=== PATIENT | male | born 1990 | race Caucasian/White ===

== ENCOUNTER 2016-06-22 12:36 | Emergency (ER) | payer OTHER ==
[~2016-06-22] VITALS: Ht 182.9 cm; Wt 105.5 kg
[2016-06-22 13:12] VITALS: BP 135/90; PULSE 95; RESP 18; O2SAT 98
[2016-06-22 13:59] LABS: BASOPHILS % (AUTO) 0.5 % (0-3); EOSINOPHILS % (AUTO) 3.3 % (0-5); MONOCYTES % (AUTO) 9.5 % (4-12); Mean Corpuscular Hemoglobin 29.3 pg (27.0-35.0); Mean Corpuscular Volume 82.4 fL (81-100); NEUTROPHILS % (AUTO) 66.5 % (40-74); Platelet Count 267 bil/L (150-400)
[2016-06-22 14:09] VITALS: BP 125/84; PULSE 86; RESP 16; O2SAT 97
--- NOTE | 2016-06-22 14:29 | DRSVH ---
PROCEDURE: X-RAY CHEST ONE VIEW, PORTABLE ([id number]) INDICATIONS: cp TECHNIQUE: One view of the chest was acquired. COMPARISON: None. FINDINGS: Surgical changes and devices: None. Lungs and pleura: No pleural effusions or pneumothorax. Lungs are clear. Mediastinum: Mediastinal contours appear normal. Heart size is normal. Bones and chest wall: No suspicious bony lesions. Overlying soft tissues appear unremarkable. IMPRESSION: Normal for age. Dictated by: Scott Wu M.D. on 06/22/2016 at 14:27 Approved by: Scott Wu M.D. on 06/22/2016 at 14:27
[2016-06-22 14:35] LABS: TROPONIN T < 0.010 ug/L (0.0-0.011)
[2016-06-22 14:36] LABS: Magnesium 2.1 mg/dL (1.6-2.6)
--- NOTE | 2016-06-22 15:12 | ED.REPORT ---
HPI-Chest Pain Under 40 Date of Service Jun 22, 2016 ED Provider: Parker Kent MD A 26 year old male with a history of insulin dependant diabetes presents to the ED complaining of sudden onset, right-sided chest pain that began at 1100 this morning. He reports experiencing similar intermittent chest pain for the past few months. He describes the pain as sharp, like "pins and needles". Associated symptoms include SOB, anxiety, facial numbness and numbness in his fingers. His pain is exacerbated by deep breath but have improved since onset. Patient currently takes rosuvastatin. He is unsure of history of blood clots and denies any recent long flights. He denies fever or cough. Nursing Notes Stated Complaint: CHEST PAIN,HARD TO BREATHE,NUMBNESS LEFT ARM Chief Complaint: Chest Pain-Non Cardiac Nature Nursing Notes Reviewed: Yes Allergies: Coded Allergies: bacitracin (Verified Allergy, Severe, 06/22/16) neomycin (Verified Allergy, Severe, 06/22/16) polymyxin B (Verified Allergy, Severe, 06/22/16) General Time Seen by MD: 15:09 Chief Complaint Chest pain Hx Obtained From: Patient Arrived By: Walk-in Sudden in Onset?: Yes Sudden in Onset?: No Onset Occurred: 5 - 8 hours ago Symptom Duration: Since onset Location: : Chest left: Chest right Quality: Painful Radiation: : Does not radiate Migration/Movement: Reports: None Severity: Current: Mild Severity: Maximum: Moderate Associated with: Reports: Numbness/tingling (in extremities), Shortness of breath Pertinent Negative: Pt denies other symptoms Exacerbated by: Deep breath Recent Healthcare: No recent doctor visit, No recent hospitalization Risk Factors )( CAD Risk Stratification Diabetes mellitus Risk factors reviewed TAD Risk Stratification Risk factors reviewed )( PE Risk Stratification Immobilization PERC Rule PERC Result: All PERC criteria "No" Past Medical History Past Medical History Type I diabetes Anxiety - Panic attacks Reports: Hyperlipidemia Past Surgical History None reported. Family History Noncontributory Smoking History Former Smoker Social History Other Social History: Good social support, Local resident Ambulatory Status Independent Review of Systems Constitutional: Denies: Chills, Fever Respiratory: Reports: Shortness of breath, Denies: Non-productive cough Cardiovascular: Reports: Chest pain GI: Denies: Abdominal pain, Nausea, Vomiting Neurologic: Reports: Numbness (mild numbness in extremitites), Denies: Change LOC Psychiatric: Reports: Anxiety Complete sys rev & neg: except as marked. Physical Exam Initial Vital Signs Vital Signs (First) Date Time Temp Pulse Resp B/P Pulse Ox O2 Delivery O2 Flow Rate FiO2 06/22/16 13:12 36.6 95 18 135/90 98 06/22/16 16:01 Room Air Initial VS: Reviewed Head / Eyes: Atraumatic, Normocephalic, PERRL Neck: Supple, Non-tender, Full range of motion Extremities: Vascular intact, Neuro intact, No swelling, No tenderness Skin: Warm, Dry, No cyanosis Neurologic: Alert, Oriented, Nonfocal Psychiatric: Mood/affect normal, Behavior normal, Normal thought content General/Constitutional: Awake, Alert Respiratory / Chest: Atraumatic, Breath sounds NL, Breath sounds = bilat, No respiratory distress RESPIRATORY: Patient has reproducible right anterior wall pain (Where the pt describes the location of his pain) Cardiovascular: Heart rate NL, Regular rhythm, Heart sounds NL, No gallop, No murmurs, No rubs, Peripheral circulation NL, Pulses = bilaterally (Good radial pulse) CARDIO: No palpable chords No swelling or tenderness in the calves Abdomen: Atraumatic, Soft, Non-tender, No distention Interpretation & Diagnostics Lab Results Interpretation Result Diagram: 06/22/16 1347 06/22/16 1347 Test 06/22/16 13:47 White Blood Count 10.9th/mm3 (3.8-10.1) Red Blood Count 5.23mil/mm3 (4.40-5.80) Hemoglobin 15.3g/dL (13.8-17.2) Hematocrit 43.1% (41.0-50.0) Mean Corpuscular Volume 82.4fL (81-100) Mean Corpuscular Hemoglobin 29.3pg (27.0-35.0) Mean Corpuscular Hemoglobin Concent 35.5% (32.0-37.0) Red Cell Distribution Width 12.9% (12.3-15.4) Platelet Count 267bil/L (150-400) Neutrophils (%) (Auto) 66.5% (40-74) Lymphocytes (%) (Auto) 19.9% (14-46) Monocytes (%) (Auto) 9.5% (4-12) Eosinophils (%) (Auto) 3.3% (0-5) Basophils (%) (Auto) 0.5% (0-3) Sodium Level 141mEq/L (134-144) Potassium Level 4.1mEq/L (3.5-5.2) Chloride Level 106mEq/L (97-108) Carbon Dioxide Level 18mmol/L (18-29) Blood Urea Nitrogen 18mg/dL (6-20) Creatinine 0.97mg/dL (0.76-1.27) Estimat Glomerular Filtration Rate 98mL/min (>59) Glucose Level 121mg/dL (60-99) Calcium Level 9.0mg/dL (8.5-10.1) Magnesium Level 2.1mg/dL (1.6-2.6) Total Bilirubin 0.6mg/dL (0.0-1.2) Aspartate Amino Transf (AST/SGOT) 18U/L (0-50) Alanine Aminotransferase (ALT/SGPT) 24U/L (0-44) Alkaline Phosphatase 66U/L (25-150) Troponin T < 0.010ug/L (0.0-0.011) Total Protein 6.7g/dL (6.4-8.4) Albumin 4.5g/dL (3.4-5.0) Hold Cantrell Top Tube Received (Received) General Lab Results Interp 1: Complete met profile NL, CBC normal ECG Interpretation ECG Interpretation: Normal Sinus Rhythm Normal P axis V-rate 50-99 Rate 83 Time: 13:24 Interpreted by: ED physician X-Ray Chest Interpretation Chest Xray Interpretation: IMPRESSION: Normal for age. Dictated by: Scott Wu M.D. on 06/22/2016 at 14:27 Interpretation / Wet Read by: Interpret - Radiologist Re-Eval/Medical Decision Med Decision/Clinical Course A 26 year old male with a history of insulin dependant diabetes presents to the ED complaining of sudden onset, right-sided chest pain that began at 1100 this morning. He reports experiencing similar intermittent chest pain for the past few months. He describes the pain as sharp, like "pins and needles". Associated symptoms include SOB, anxiety, facial numbness and numbness in his fingers. His pain is exacerbated by deep breath but have improved since onset. Here in the emergency department the patient is afebrile with stable vital signs and in no apparent distress. EKG was obtained and interpreted by myself as documented above. CXR: Obtained, reviewed and interpreted by myself shows no evidence of acute infiltrates, effusions or pneumothorax. Cardiac and mediastinal silhouette normal. No bony or soft tissue abnormalities. PERC negative CBC and CMP unremarkable Troponin negative Overall presentation was consistent with panic and anxiety. No evidence of pneumonia or pneumothorax. Consider pulmonary embolism palpation has no major pulmonary embolus risk factors. He is PERC negative. Presentation not suggestive of acute coronary syndrome, this to be highly atypical and 26-year- old male and initial troponin EKG obtained from triage are negative. Discussed this with the patient. He is reassured. He will follow up with his primary care physician. He reports that he has taken antianxiety medications in the past and will discuss this further with his primary care doctor. No suicidal or homicidal ideation and he is not decompensated from a psychiatric perspective. Follow-up and return precautions were provided detail and the patient verbalizes understanding and agreement with the plan. Re-Evaluation/Progress : Time of Eval: 15:36 Patient Status: Condition improved Re-Evaluation/Progress Note: Patient is rechecked. He is informed of his X-ray results, EKG, lab results and diagnosis. All of the patient's questions are adressed. He understands and agrees with the treatment plan to discharge. Counseled Regarding: Diagnosis, Lab results, Need for follow-up, When/why to return to ED Discharge & Departure Primary Impression: Chest wall pain Additional Impressions: Anxiety Panic attack Pins and needles sensation Disposition: Home Discharge Condition All VS Reviewed: Yes Condition: Improved Patient Instructions: Generalized Anxiety Disorder (ED) Additional Instructions: Thank you for seeking care at the emergency room. It is difficult for us to make definitive diagnoses in the ED but we believe that you are experiencing musculoskeletal pain in your chest. Our primary goal today in the ED was to evaluate you for any life-threatening conditions. Your evaluation including examination, lab work, EKG and chest X- ray are reassuring. Please schedule a follow-up with your primary doctor in the next week to discuss possibly taking anxiety medication. You should return to the ED immediately if you develop cough, shortness of breath, chest pain, lightheadedness, weakness or any other concerning signs or symptoms. Thank you for letting us partake in your care today. Referrals: Kristi Mora MD (PCP) Scribe Attestation Portions of this note were transcribed by Larisa White. I, Dr. Kent personally performed the history, physical exam and medical decision-making; I reviewed and confirmed the accuracy of the information in the transcribed note. Signed by: Judd Edwards, 06/22/16 1555. copies to: Kristi Mora MD,Parker Weller MD Jun 22, 2016 15:12 LARISA WHITE Jun 22, 2016 15:21
[2016-06-22 16:01] VITALS: BP 131/86; PULSE 83; RESP 19; O2SAT 97
== END 2016-06-22 15:54 | disposition home or self-care (01) ==
LOC: SED 12:36
DX: R07.89 Other chest pain (principal); F41.0 Panic disorder [episodic paroxysmal anxiety]; R20.2 Paresthesia of skin; R06.02 Shortness of breath; E10.9 Type 1 diabetes mellitus without complications; E78.5 Hyperlipidemia, unspecified; Z87.891 Personal history of nicotine dependence; Z88.1 Allergy status to other antibiotic agents